=== PATIENT | male | born 1945 | race Hispanic/Latino ===

== ENCOUNTER → 2017-09-01 | Outpatient (CLI) | payer MEDICARE ==
[~2017-09-01] MED LIST: IOPAMIDOL 370 MG/ML 200 ML INFUS..BTL INJ ONE; SODIUM CHLORIDE 0.9% 50ML 50 ML ONE
[2017-09-01 16:09] LABS: BLOOD UREA NITROGEN 14 mg/dL (7-26); BUN/CREATININE RATIO 13 (6-25); CREATININE, SERUM 1.09 mg/dL (0.72-1.25); EST GLOMERULAR FILTRATION RATE > 60 ML/MIN (60-)
--- NOTE | 2017-09-02 08:18 | Diagnostic Imaging Report ---
Examination: Cervical CT Angiogram with Contrast Clinical indication:Carotid stenosis. Comparison studies:None Technique: Axial images were obtained from the thoracic inlet. Coronal and sagittal images reconstructed from the axial data. Intravenous contrast: 100 cc of Isovue-[id number]. Computer generated maximum intensity projection images were performed of the bilateral carotid bifurcations and the aortic arch with bilateral common carotid and cervical internal carotid arteries on a separate workstation. Degree of stenosis at the carotid bulbs, if present, will be calculated using NASCET criteria where the smallest diameter at the location of stenosis is compared to the diameter of the more distal non-diseased vessel lumen. Findings: Aortic arch and major vessels: Patent. Nonstenotic (0%) atherosclerotic calcification. Common carotid arteries: Patent Cervical carotid bifurcations: Right: Nonstenotic (0%) atherosclerotic calcification. Left :Nonstenotic (0%) atherosclerotic calcification. Internal carotid arteries: Right: Mild stenosis (approximately 40%) due to near circumferential soft plaque for a length of 1.6 cm. Retropharyngeal course. Left: Severe stenosis (approximately 70%) due to circumferential soft plaque particularly posteriorly for a length of 1.9 cm. Retropharyngeal course. Vertebral arteries: Patent. IMPRESSION: 1. Severe stenosis (approximately 70%) of the proximal cervical segment of the left internal carotid artery due to soft plaque. 2. Mild stenosis (approximately 40%) of the proximal cervical segment of the right internal carotid artery due to soft plaque. 3. Nonstenotic (0%) atherosclerotic calcification of the bilateral carotid bifurcations. Signed by: Dr. Ranjana Saunders M.D. on 09/02/2017 8:14 AM
== END ==
LOC: CT 15:09
PROVIDERS: ATTEND Internal Medicine Interventional Cardiology
DX: I65.22 Occlusion and stenosis of left carotid artery (principal)
CPT/HCPCS: 36415; 70498; 82565; 84520; Q9967

== ENCOUNTER → 2020-04-30 | Day surgery (SDC) | payer MEDICARE, OTHER ==
[2020-04-25 12:15] LABS: BASOPHILS # (AUTO) 0.1 (0.0-0.1); BASOPHILS % 0.7 % (0.0-1.0); EOSINOPHILS # (AUTO) 0.2 (0.0-0.4); EOSINOPHILS % 1.7 % (0.0-6.0); HEMATOCRIT 43.9 % (38.2-49.6); HEMOGLOBIN 14.3 g/dL (14.0-18.0); LYMPHOCYTES # (AUTO) 2.8 (1.0-3.2); LYMPHOCYTES % 31.8 % (18.0-39.1); MEAN CORPUSCULAR HGB CONC 32.6 g/dL (31-35); MEAN CORPUSCULAR VOLUME 95.2 fL (81-99); MONOCYTES # (AUTO) 0.5 (0.2-0.8); MONOCYTES % 5.3 % (4.4-11.3); NEUTROPHILS # (AUTO) 5.2 (2.1-6.9); NEUTROPHILS % 60.2 % (38.7-80.0); PLATELET COUNT 215 x10e3/uL (140-360); RED BLOOD COUNT 4.61 x10e6/uL (4.3-5.7); RED CELL DISTRIBUTION WIDTH 13.3 % (11.7-14.4)
[2020-04-25 12:36] LABS: ALANINE AMINOTRANSFERASE 8 IU/L (0-55); ALBUMIN 3.7 g/dL (3.5-5.0); ALKALINE PHOSPHATASE 94 IU/L (40-150); ANION GAP 15.4 mmol/L (8-16); BLOOD UREA NITROGEN 13 mg/dL (7-26); BUN/CREATININE RATIO 13 (6-25); CALCIUM 8.8 mg/dL (8.4-10.2); CARBON DIOXIDE 26 mmol/L (22-29); CHLORIDE 102 mmol/L (98-107); CREATININE, SERUM 1.03 mg/dL (0.72-1.25); EST GLOMERULAR FILTRATION RATE > 60 ML/MIN (60-); GLUCOSE 87 mg/dL (74-118); POTASSIUM 3.4 mmol/L (3.5-5.1); SODIUM 140 mmol/L (136-145)
[2020-04-30] VITALS (11 sets, daily range): BP systolic 94–136; BP diastolic 56–76
[~2020-04-30] MED LIST changes: +ALPRAZOLAM 0.5 MG TAB ONE; +AMLODIPINE BESYL5 MG PO; +ATORVASTATIN CA20 MG PO; +CARVEDILOL12.5 MG PO; +DIPHENHYDRAMINE HCL 25 MG CAP ONE; +EFFIENT10 MG PO; +FENTANYL CITRATE/PF 100MCG/2 ML INJ ONE; +FINASTERIDE5 MG PO; +FLOMAX0.4 MG PO; +HEPARIN SOD/SOD CHLORIDE 2,000 ML ONE; +HYDRALAZINE HCL25 MG PO; +LIDOCAINE HCL 2% LOCAL 20 ML VIAL ONE; +MIDAZOLAM HCL 2 MG/2 ML VIAL ONE; +NITROGLYCERIN0.4 MG SL; +PANTOPRAZOLE SO40 MG PO; +SODIUM CHLORIDE 0.9% 1000ML 1,000 ML ONE; -SODIUM CHLORIDE 0.9% 50ML 50 ML ONE; +VALSARTAN-HCTZ1 EAC3 PO
--- NOTE | 2020-04-30 16:00 | NUR ---
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 Alert oriented and appropriate, PERRLA, respirations even and unlabored to room air. Pulses x4 extremities equal and strong. Pedal pulses PT/DP X4 and marked. Cap fill brisk < 3 sec. Proc/Distal TR band No gross issues pain,pallor,pressure or dysrhythmia. Skin warm and dry integrity appears D/i IV 20g to left hand , presents healthy w/o s/s of infiltration or complaint. Abdomen soft and supple. pt offered toileting, denies need to urinate or defecate. No personal affects with patient. Family at bedside. Pt and family verbalizes understanding of POC. Currently w/o complaint of pain or need. ds/angelika
--- NOTE | 2020-04-30 16:00 | NUR ---
1600p Proximal Compression removal: Initial Cuff volume 20 cc 1600p -5 cc Removed No hematoma/bleeding noted with normal neurovascular function. 1615p-5 cc Removed No hematoma/ bleeding noted with normal neurovascular function. 1630p-5 cc Removed No hematoma/bleeding noted with normal neurovascular function. 1645p-5 cc Removed No hematoma/ bleeding noted with normal neurovascular function. Air removal completed. 1600p Distal Compression removal: Initial Cuff volume 15 cc 1600p -5 cc Removed No hematoma/bleeding noted with normal neurovascular function. 1615p -5 cc Removed No hematoma/ bleeding noted with normal neurovascular function. 1630p-5 cc Removed No hematoma/bleeding noted with normal neurovascular function. Air removal completed. Stasis achieved sterile 2x2,Tegaderm, Coban dressing No hematoma, bleeding noted with normal neurovascular function. Pt instructed on POC. Ds/Rn
--- NOTE | 2020-04-30 17:00 | NUR ---
1700 NURSING DCnote from CCL,Pt meets DC criteria. Rt Tr band site assessed for s/s of complication and presence of hematoma.Skin warm, dry, no discolor, and pulses present. IV removed from left hand. Distal tip appears intact. VS WNL. Pt denies pain, sob, or need at this time. Family at BS. Review of discharge paperwork and follow up instructions. verbalized understanding. Pt to wheelchair and transported to front of hospital. Transferred to private vehicle under own strength w/o incident with DC paperwork in hand. - ds/rn
--- NOTE | 2020-05-28 11:17 | Operative Report ---
DATE OF PROCEDURE: 04/30/2020 SURGEON: Torres Lindquist MD INDICATIONS: Coronary artery disease, angina, abnormal stress test. PROCEDURES PERFORMED: 1. Ultrasound-guided access in the right radial artery with sheath placement. 2. Left heart catheterization, selective coronary angiography. 3. Conscious sedation, 35 minutes. 4. Deployment of right wrist TR band. COMPLICATIONS: None. BLOOD LOSS: Minimal. RECOMMENDATIONS: Medical therapy. DESCRIPTION OF PROCEDURE: Access was obtained in the right radial artery. A 5-Persian sheath was placed. Coronary angiography demonstrated 30% to 50% proximal left anterior descending artery stenosis. Ramus intermedius stent was widely patent. Ostial circumflex 50% to 70%. Multiple stents in the RCA widely patent, distal RCA 50%. LV end-diastolic pressure of 5. No gradient across the aortic valve on pullback. Right wrist TR band applied. The patient discharged home the same day. Torres Lindquist MD [facility]/MOD[facility] /[id number]
== END | disposition home or self-care (01) ==
LOC: CATH LAB 11:51
PROVIDERS: ATTEND Internal Medicine Interventional Cardiology
DX: I25.118 Atherosclerotic heart disease of native coronary artery with other forms of angina pectoris (principal); R94.39 Abnormal result of other cardiovascular function study; I10 Essential (primary) hypertension; I73.9 Peripheral vascular disease, unspecified; I65.23 Occlusion and stenosis of bilateral carotid arteries; Z01.812 Encounter for preprocedural laboratory examination; Z20.828 Contact with and (suspected) exposure to other viral communicable diseases; Z68.36 Body mass index [BMI] 36.0-36.9, adult; Z82.49 Family history of ischemic heart disease and other diseases of the circulatory system
CPT/HCPCS: 36415; 76937; 80053; 85025; 93458; C1769; C1887; J2001; J2250; J3010; J7030; Q9967; U0002; 99152

== ENCOUNTER 2020-08-07 06:24 | Inpatient (IN) | payer MEDICARE ==
[2020-08-02 08:36] LABS: BASOPHILS # (AUTO) 0.1 (0.0-0.1); BASOPHILS % 0.6 % (0.0-1.0); EOSINOPHILS # (AUTO) 0.2 (0.0-0.4); HEMATOCRIT 43.8 % (38.2-49.6); HEMOGLOBIN 14.2 g/dL (14.0-18.0); LYMPHOCYTES # (AUTO) 2.8 (1.0-3.2); LYMPHOCYTES % 34.9 % (18.0-39.1); MEAN CORPUSCULAR HEMOGLOBIN 30.4 pg (28-32); MEAN CORPUSCULAR HGB CONC 32.4 g/dL (31-35); MEAN CORPUSCULAR VOLUME 93.8 fL (81-99); MONOCYTES # (AUTO) 0.5 (0.2-0.8); MONOCYTES % 6.1 % (4.4-11.3); NEUTROPHILS # (AUTO) 4.5 (2.1-6.9); NEUTROPHILS % 56.2 % (38.7-80.0); PLATELET COUNT 242 x10e3/uL (140-360); RED BLOOD COUNT 4.67 x10e6/uL (4.3-5.7); RED CELL DISTRIBUTION WIDTH 13.4 % (11.7-14.4)
[2020-08-02 08:53] LABS: ANION GAP 14.7 mmol/L (8-16); BLOOD UREA NITROGEN 14 mg/dL (7-26); BUN/CREATININE RATIO 14 (6-25); CALCIUM 8.7 mg/dL (8.4-10.2); CARBON DIOXIDE 29 mmol/L (22-29); CHLORIDE 102 mmol/L (98-107); EST GLOMERULAR FILTRATION RATE > 60 ML/MIN (60-); GLUCOSE 91 mg/dL (74-118); POTASSIUM 3.7 mmol/L (3.5-5.1); SODIUM 142 mmol/L (136-145)
[2020-08-06] MEDS: D5.45%NS/KCL 20MEQ 1,000 ML IV SCH (23:45)
[~2020-08-07] VITALS: Ht 177.8 cm; Wt 98.9 kg
[~2020-08-07 06:24] MED LIST changes: -ALPRAZOLAM 0.5 MG TAB ONE; +ASPIRIN81 MG PO; -DIPHENHYDRAMINE HCL 25 MG CAP ONE; -FENTANYL CITRATE/PF 100MCG/2 ML INJ ONE; -HEPARIN SOD/SOD CHLORIDE 2,000 ML ONE; -IOPAMIDOL 370 MG/ML 200 ML INFUS..BTL INJ ONE; -LIDOCAINE HCL 2% LOCAL 20 ML VIAL ONE; -MIDAZOLAM HCL 2 MG/2 ML VIAL ONE; -SODIUM CHLORIDE 0.9% 1000ML 1,000 ML ONE
[2020-08-07] MEDS ORDERED: CEFTRIAXONE SOD 1 GM/NS 50 ML 50 ML IV ONE (07:05)
[2020-08-07] MEDS ORDERED: SODIUM CHLORIDE 0.45% 1,000 ML ONE (07:05)
[2020-08-07] MEDS ORDERED: GENTAMICIN 80MG/NS 100 ML 200 ML IV ONE (07:05)
[2020-08-07] MEDS ORDERED: IOPAMIDOL 300MG/ML 50ML INFUS..BTL IV ONE (07:33)
[2020-08-07] MEDS ORDERED: B&O 60MG R/S 60 MG SUPP PR ONE (07:34)
[2020-08-07] MEDS ORDERED: FENTANYL CITRATE/PF 100MCG/2 ML INJ ONE (10:01)
[2020-08-07] MEDS ORDERED: HYDROMORPHONE 1MG/1ML INJ ONE (10:35)
[2020-08-07] MEDS ORDERED: ONDANSETRON HCL INJ 2MG/ML 2ML 2 MG/ML VIAL IV PRN (12:30)
[2020-08-07] MEDS ORDERED: DIPHENHYDRAMINE HCL 25 MG CAP PO PRN (12:30)
[2020-08-07] MEDS ORDERED: ONDANSETRON HCL INJ 2MG/ML 2ML 2 MG/ML VIAL ONE (12:54)
[2020-08-07] MEDS ORDERED: LIDOCAINE HCL 2% JELLY 5 ML TUBE ONE (12:54)
[2020-08-07] MEDS ORDERED: LIDOCAINE HCL 2% LOCAL INJ 5 ML SDV VIAL INJ ONE (12:54)
[2020-08-07] MEDS ORDERED: EPHEDRINE SULFATE INJ 50 MG/ML VIAL ONE (12:54)
[2020-08-07] MEDS ORDERED: PROPOFOL IV EMULSION 10 MG/ML 20 ML VIAL ONE (12:54)
[2020-08-07] MEDS ORDERED: SEVOFLURANE INHAL SOLN 250 ML PEN BTL ONE (12:54)
[2020-08-07 12:58] LABS: BASOPHILS # (AUTO) 0.1 (0.0-0.1); BASOPHILS % 0.5 % (0.0-1.0); EOSINOPHILS # (AUTO) 0.1 (0.0-0.4); HEMATOCRIT 42.8 % (38.2-49.6); HEMOGLOBIN 13.8 g/dL (14.0-18.0); LYMPHOCYTES # (AUTO) 1.9 (1.0-3.2); LYMPHOCYTES % 19.1 % (18.0-39.1); MEAN CORPUSCULAR HEMOGLOBIN 30.9 pg (28-32); MEAN CORPUSCULAR HGB CONC 32.2 g/dL (31-35); MEAN CORPUSCULAR VOLUME 95.7 fL (81-99); MONOCYTES # (AUTO) 0.5 (0.2-0.8); MONOCYTES % 4.5 % (4.4-11.3); NEUTROPHILS # (AUTO) 7.5 (2.1-6.9); NEUTROPHILS % 74.5 % (38.7-80.0); PLATELET COUNT 209 x10e3/uL (140-360); RED BLOOD COUNT 4.47 x10e6/uL (4.3-5.7); RED CELL DISTRIBUTION WIDTH 13.3 % (11.7-14.4)
[2020-08-07 13:07] LABS: ANION GAP 10.9 mmol/L (8-16); BLOOD UREA NITROGEN 13 mg/dL (7-26); BUN/CREATININE RATIO 12 (6-25); CALCIUM 7.6 mg/dL (8.4-10.2); CARBON DIOXIDE 28 mmol/L (22-29); CHLORIDE 105 mmol/L (98-107); CREATININE, SERUM 1.08 mg/dL (0.72-1.25); EST GLOMERULAR FILTRATION RATE > 60 ML/MIN (60-); GLUCOSE 94 mg/dL (74-118); POTASSIUM 3.9 mmol/L (3.5-5.1); SODIUM 140 mmol/L (136-145)
[2020-08-07] MEDS: D5.45%NS/KCL 20MEQ 1,000 ML IV SCH ×2 (14:00→23:45)
[2020-08-07] MEDS: B&O 60MG R/S 60 MG SUPP PR PRN (14:00)
[2020-08-07 14:30] VITALS: BP 112/57
[2020-08-07 15:50] VITALS: BP 112/57
[2020-08-07 20:01] VITALS: BP 111/64
[2020-08-07 20:15] VITALS: BP 111/64
[2020-08-08] VITALS (8 sets, daily range): BP systolic 115–152; BP diastolic 60–84
[2020-08-08 05:31] LABS: BASOPHILS # (AUTO) 0.1 (0.0-0.1); BASOPHILS % 0.6 % (0.0-1.0); EOSINOPHILS # (AUTO) 0.2 (0.0-0.4); EOSINOPHILS % 1.8 % (0.0-6.0); HEMATOCRIT 39.1 % (38.2-49.6); HEMOGLOBIN 12.9 g/dL (14.0-18.0); LYMPHOCYTES % 23.1 % (18.0-39.1); MEAN CORPUSCULAR HEMOGLOBIN 31.5 pg (28-32); MEAN CORPUSCULAR VOLUME 95.4 fL (81-99); MONOCYTES # (AUTO) 0.5 (0.2-0.8); MONOCYTES % 5.5 % (4.4-11.3); NEUTROPHILS # (AUTO) 5.9 (2.1-6.9); NEUTROPHILS % 68.7 % (38.7-80.0); PLATELET COUNT 186 x10e3/uL (140-360); RED CELL DISTRIBUTION WIDTH 13.4 % (11.7-14.4)
[2020-08-08 05:55] LABS: ANION GAP 10.8 mmol/L (8-16); BLOOD UREA NITROGEN 12 mg/dL (7-26); BUN/CREATININE RATIO 14 (6-25); CALCIUM 7.4 mg/dL (8.4-10.2); CARBON DIOXIDE 26 mmol/L (22-29); CHLORIDE 105 mmol/L (98-107); CREATININE, SERUM 0.88 mg/dL (0.72-1.25); EST GLOMERULAR FILTRATION RATE > 60 ML/MIN (60-); GLUCOSE 108 mg/dL (74-118); POTASSIUM 3.8 mmol/L (3.5-5.1); SODIUM 138 mmol/L (136-145)
[2020-08-08] MEDS ORDERED: HYDRALAZINE HCL 25 MG TAB PO PRN (07:45)
[2020-08-08] MEDS: D5.45%NS/KCL 20MEQ 1,000 ML IV SCH ×2 (08:28→15:47)
[2020-08-08] MEDS: CARVEDILOL 12.5 MG TAB PO SCH ×2 (09:00→16:18)
[2020-08-08] MEDS: PANTOPRAZOLE SOD 40 MG TABEC PO SCH (09:01)
[2020-08-08] MEDS: CEFTRIAXONE SOD 1 GM/NS 50 ML 50 ML IV SCH (09:01)
[2020-08-08] MEDS: FINASTERIDE 5 MG TAB PO SCH (09:01)
[2020-08-08] MEDS: AMLODIPINE BESYLATE 5 MG TAB PO SCH (09:01)
[2020-08-08] MEDS: TAMSULOSIN HCL 0.4 MG CAP PO SCH (16:18)
[2020-08-08] MEDS ORDERED: ACETAMINOPHEN 325 MG TAB PO PRN (16:30)
[2020-08-08] MEDS: ATORVASTATIN 40 MG TAB PO SCH (20:45)
[2020-08-09] VITALS (7 sets, daily range): BP systolic 118–146; BP diastolic 69–89
[2020-08-09] MEDS: D5.45%NS/KCL 20MEQ 1,000 ML IV SCH (00:19)
[2020-08-09 05:29] LABS: BASOPHILS # (AUTO) 0.1 (0.0-0.1); BASOPHILS % 0.6 % (0.0-1.0); EOSINOPHILS # (AUTO) 0.2 (0.0-0.4); EOSINOPHILS % 2.3 % (0.0-6.0); LYMPHOCYTES # (AUTO) 2.3 (1.0-3.2); LYMPHOCYTES % 25.5 % (18.0-39.1); MEAN CORPUSCULAR HEMOGLOBIN 30.4 pg (28-32); MEAN CORPUSCULAR HGB CONC 32.5 g/dL (31-35); MEAN CORPUSCULAR VOLUME 93.5 fL (81-99); MONOCYTES # (AUTO) 0.6 (0.2-0.8); MONOCYTES % 6.3 % (4.4-11.3); NEUTROPHILS # (AUTO) 5.8 (2.1-6.9); PLATELET COUNT 176 x10e3/uL (140-360); RED BLOOD COUNT 4.28 x10e6/uL (4.3-5.7); RED CELL DISTRIBUTION WIDTH 13.4 % (11.7-14.4)
[2020-08-09 05:39] LABS: ANION GAP 13.6 mmol/L (8-16); BLOOD UREA NITROGEN 10 mg/dL (7-26); BUN/CREATININE RATIO 11 (6-25); CALCIUM 7.8 mg/dL (8.4-10.2); CARBON DIOXIDE 24 mmol/L (22-29); CHLORIDE 105 mmol/L (98-107); CREATININE, SERUM 0.87 mg/dL (0.72-1.25); EST GLOMERULAR FILTRATION RATE > 60 ML/MIN (60-); GLUCOSE 98 mg/dL (74-118); POTASSIUM 3.6 mmol/L (3.5-5.1); SODIUM 139 mmol/L (136-145)
[2020-08-09] MEDS ORDERED: MAGNESIUM/ALUMINUM/SIMETHICONE 30 ML UDC PO PRN (07:15)
[2020-08-09] MEDS ORDERED: SENNA-S TABLET PO PRN (07:15)
[2020-08-09] MEDS ORDERED: MAGNESIUM HYDROXIDE 30 ML UDC PO PRN (07:15)
[2020-08-09] MEDS: CEFTRIAXONE SOD 1 GM/NS 50 ML 50 ML IV SCH (10:15)
[2020-08-09] MEDS: CARVEDILOL 12.5 MG TAB PO SCH ×2 (10:16→16:51)
[2020-08-09] MEDS: AMLODIPINE BESYLATE 5 MG TAB PO SCH (10:16)
[2020-08-09] MEDS: FINASTERIDE 5 MG TAB PO SCH (10:17)
[2020-08-09] MEDS: PANTOPRAZOLE SOD 40 MG TABEC PO SCH (10:17)
[2020-08-09] MEDS: PHENAZOPYRIDINE HCL 100 MG TAB PO PRN ×2 (10:22→16:55)
[2020-08-09] MEDS: TAMSULOSIN HCL 0.4 MG CAP PO SCH (16:51)
[2020-08-09] MEDS: ATORVASTATIN 40 MG TAB PO SCH (21:38)
[2020-08-10] VITALS (8 sets, daily range): BP systolic 116–171; BP diastolic 60–80
[2020-08-10 06:21] LABS: BASOPHILS # (AUTO) 0.1 (0.0-0.1); BASOPHILS % 0.5 % (0.0-1.0); EOSINOPHILS # (AUTO) 0.2 (0.0-0.4); EOSINOPHILS % 1.9 % (0.0-6.0); HEMATOCRIT 39.9 % (38.2-49.6); HEMOGLOBIN 13.2 g/dL (14.0-18.0); LYMPHOCYTES # (AUTO) 2.2 (1.0-3.2); LYMPHOCYTES % 23.9 % (18.0-39.1); MEAN CORPUSCULAR HEMOGLOBIN 30.6 pg (28-32); MEAN CORPUSCULAR HGB CONC 33.1 g/dL (31-35); MEAN CORPUSCULAR VOLUME 92.4 fL (81-99); MONOCYTES # (AUTO) 0.6 (0.2-0.8); MONOCYTES % 6.1 % (4.4-11.3); NEUTROPHILS # (AUTO) 6.2 (2.1-6.9); NEUTROPHILS % 67.3 % (38.7-80.0); PLATELET COUNT 188 x10e3/uL (140-360); RED BLOOD COUNT 4.32 x10e6/uL (4.3-5.7); RED CELL DISTRIBUTION WIDTH 13.2 % (11.7-14.4)
[2020-08-10 07:13] LABS: ANION GAP 13.6 mmol/L (8-16); BLOOD UREA NITROGEN 10 mg/dL (7-26); BUN/CREATININE RATIO 13 (6-25); CALCIUM 7.8 mg/dL (8.4-10.2); CARBON DIOXIDE 23 mmol/L (22-29); CHLORIDE 104 mmol/L (98-107); EST GLOMERULAR FILTRATION RATE > 60 ML/MIN (60-); GLUCOSE 84 mg/dL (74-118); POTASSIUM 3.6 mmol/L (3.5-5.1); SODIUM 137 mmol/L (136-145)
[2020-08-10] MEDS: FINASTERIDE 5 MG TAB PO SCH (08:51)
[2020-08-10] MEDS: AMLODIPINE BESYLATE 5 MG TAB PO SCH (08:51)
[2020-08-10] MEDS: CARVEDILOL 12.5 MG TAB PO SCH ×2 (08:51→16:48)
[2020-08-10] MEDS: PANTOPRAZOLE SOD 40 MG TABEC PO SCH (08:51)
[2020-08-10] MEDS: CEFTRIAXONE SOD 1 GM/NS 50 ML 50 ML IV SCH (08:51)
[2020-08-10] MEDS: PHENAZOPYRIDINE HCL 100 MG TAB PO PRN ×2 (08:52→14:30)
[2020-08-10] MEDS: ACETAMINOPHEN/CODEINE 300MG - 30MG TAB PO PRN ×2 (10:26→19:58)
[2020-08-10] MEDS: B&O 60MG R/S 60 MG SUPP PR PRN (16:48)
[2020-08-10] MEDS: TAMSULOSIN HCL 0.4 MG CAP PO SCH (16:48)
[2020-08-10] MEDS: ATORVASTATIN 40 MG TAB PO SCH (19:57)
[2020-08-11] VITALS (9 sets, daily range): BP systolic 109–150; BP diastolic 49–76
[2020-08-11] MEDS: ACETAMINOPHEN/CODEINE 300MG - 30MG TAB PO PRN ×2 (01:49→06:00)
[2020-08-11 06:04] LABS: BASOPHILS % 0.6 % (0.0-1.0); EOSINOPHILS # (AUTO) 0.1 (0.0-0.4); EOSINOPHILS % 1.6 % (0.0-6.0); HEMATOCRIT 39.2 % (38.2-49.6); HEMOGLOBIN 12.8 g/dL (14.0-18.0); LYMPHOCYTES # (AUTO) 1.8 (1.0-3.2); LYMPHOCYTES % 25.4 % (18.0-39.1); MEAN CORPUSCULAR HEMOGLOBIN 30.6 pg (28-32); MEAN CORPUSCULAR HGB CONC 32.7 g/dL (31-35); MEAN CORPUSCULAR VOLUME 93.8 fL (81-99); MONOCYTES # (AUTO) 0.6 (0.2-0.8); MONOCYTES % 8.9 % (4.4-11.3); NEUTROPHILS # (AUTO) 4.4 (2.1-6.9); NEUTROPHILS % 63.1 % (38.7-80.0); PLATELET COUNT 169 x10e3/uL (140-360); RED BLOOD COUNT 4.18 x10e6/uL (4.3-5.7); RED CELL DISTRIBUTION WIDTH 13.3 % (11.7-14.4)
[2020-08-11 06:34] LABS: ANION GAP 12.8 mmol/L (8-16); BLOOD UREA NITROGEN 17 mg/dL (7-26); BUN/CREATININE RATIO 17 (6-25); CALCIUM 8.1 mg/dL (8.4-10.2); CARBON DIOXIDE 24 mmol/L (22-29); CHLORIDE 103 mmol/L (98-107); CREATININE, SERUM 1.01 mg/dL (0.72-1.25); EST GLOMERULAR FILTRATION RATE > 60 ML/MIN (60-); GLUCOSE 91 mg/dL (74-118); POTASSIUM 3.8 mmol/L (3.5-5.1); SODIUM 136 mmol/L (136-145)
[2020-08-11] MEDS: PANTOPRAZOLE SOD 40 MG TABEC PO SCH (08:28)
[2020-08-11] MEDS: AMLODIPINE BESYLATE 5 MG TAB PO SCH (08:28)
[2020-08-11] MEDS: CEFTRIAXONE SOD 1 GM/NS 50 ML 50 ML IV SCH (08:28)
[2020-08-11] MEDS: FINASTERIDE 5 MG TAB PO SCH (08:28)
[2020-08-11] MEDS: CARVEDILOL 12.5 MG TAB PO SCH ×2 (08:28→18:00)
[2020-08-11] MEDS: PHENAZOPYRIDINE HCL 100 MG TAB PO PRN ×2 (08:30→18:00)
[2020-08-11] MEDS ORDERED: TRAMADOL HCL 50 MG TAB PO PRN (16:30)
[2020-08-11] MEDS: TAMSULOSIN HCL 0.4 MG CAP PO SCH (18:00)
[2020-08-11] MEDS: ATORVASTATIN 40 MG TAB PO SCH (20:46)
[2020-08-12] VITALS (9 sets, daily range): BP systolic 109–145; BP diastolic 63–81
[2020-08-12] MEDS ORDERED: SODIUM CHLORIDE 0.9% 1000ML 1,000 ML IV ONE (07:45)
[2020-08-12] MEDS: CEFTRIAXONE SOD 1 GM/NS 50 ML 50 ML IV SCH (07:49)
[2020-08-12] MEDS: FINASTERIDE 5 MG TAB PO SCH (07:49)
[2020-08-12] MEDS: AMLODIPINE BESYLATE 5 MG TAB PO SCH (07:49)
[2020-08-12] MEDS: PANTOPRAZOLE SOD 40 MG TABEC PO SCH (07:49)
[2020-08-12] MEDS: CARVEDILOL 12.5 MG TAB PO SCH ×2 (07:49→17:24)
[2020-08-12] MEDS: TAMSULOSIN HCL 0.4 MG CAP PO SCH (17:24)
[2020-08-12] MEDS ORDERED: ONDANSETRON HCL 4 MG ORAL DISINTEGRATING TAB PO PRN (19:00)
[2020-08-12] MEDS: ATORVASTATIN 40 MG TAB PO SCH (21:25)
[2020-08-13] VITALS: BP 123/66
[2020-08-13 04:00] VITALS: BP 123/77
[2020-08-13 06:22] LABS: ANION GAP 13.9 mmol/L (8-16); BLOOD UREA NITROGEN 10 mg/dL (7-26); BUN/CREATININE RATIO 11 (6-25); CALCIUM 8.4 mg/dL (8.4-10.2); CARBON DIOXIDE 28 mmol/L (22-29); CHLORIDE 99 mmol/L (98-107); CREATININE, SERUM 0.89 mg/dL (0.72-1.25); EST GLOMERULAR FILTRATION RATE > 60 ML/MIN (60-); GLUCOSE 86 mg/dL (74-118); POTASSIUM 3.9 mmol/L (3.5-5.1); SODIUM 137 mmol/L (136-145)
[2020-08-13 08:07] VITALS: BP 126/66
[2020-08-13 08:39] VITALS: BP 126/66
[2020-08-13] MEDS: CARVEDILOL 12.5 MG TAB PO SCH (08:41)
[2020-08-13] MEDS: CEFTRIAXONE SOD 1 GM/NS 50 ML 50 ML IV SCH (08:41)
[2020-08-13] MEDS: AMLODIPINE BESYLATE 5 MG TAB PO SCH (08:41)
[2020-08-13] MEDS: FINASTERIDE 5 MG TAB PO SCH (08:41)
[2020-08-13] MEDS: PANTOPRAZOLE SOD 40 MG TABEC PO SCH (08:41)
[2020-08-13] MEDS ORDERED: SODIUM CHLORIDE 0.9% 250ML 250 ML ONE (08:54)
[2020-08-13 11:44] VITALS: BP 130/71
== END 2020-08-13 12:42 | disposition home or self-care (01) | DRG 713 ==
LOC: OR 06:24 → PACU V 12:29 → MED/SURG 13:40 → MED/SURG2 08-12 22:12
PROVIDERS: ADMIT Internal Medicine; ATTEND Internal Medicine
PROC: 0V508ZZ Destruction of Prostate, Via Natural or Artificial Opening Endoscopic (ICD-10-PCS; principal; 2020-08-07 08:00)
PROC: BT141ZZ Fluoroscopy of Kidneys, Ureters and Bladder using Low Osmolar Contrast (ICD-10-PCS; 2020-08-07 08:00)
DX: N40.1 Benign prostatic hyperplasia with lower urinary tract symptoms (principal); N13.8 Other obstructive and reflux uropathy; N39.0 Urinary tract infection, site not specified; E11.9 Type 2 diabetes mellitus without complications; E66.01 Morbid (severe) obesity due to excess calories; Z68.31 Body mass index [BMI] 31.0-31.9, adult; I10 Essential (primary) hypertension; I25.10 Atherosclerotic heart disease of native coronary artery without angina pectoris; Z95.5 Presence of coronary angioplasty implant and graft; E78.5 Hyperlipidemia, unspecified; R31.0 Gross hematuria; Z79.82 Long term (current) use of aspirin
CPT/HCPCS: 36415; 71046; 74420; 80048; 83735; 85025; 93005; C1758; J0696; J1170; J1580; J2001; J2405; J3010; J7030; J7050; U0002